=== PATIENT | female | born 1980 | race Caucasian/White ===

== ENCOUNTER 2019-11-22 17:20 | Emergency (ER) | payer MEDICAID ==
[~2019-11-22] VITALS: Ht 162.6 cm; Wt 74.4 kg
--- NOTE | 2019-11-22 17:26 | NUR ---
CALLED OUT PATIENT NAME IN LOBBY, NO RESPONSE
--- NOTE | 2019-11-22 17:34 | NUR ---
CALLED OUT PATIENT NAME IN LOBBY, NO RESPONSE
--- NOTE | 2019-11-22 17:43 | NUR ---
CALLED OUT PATIENT NAME IN LOBBY, NO RESPONSE
[2019-11-22 17:53] VITALS: BP 127/78
--- NOTE | 2019-11-22 18:10 | NUR ---
BIB self from home with c/o pain with urination and suspected STI. A, A, Ox4, cooperative, in NAD Resp even and unlabored, VVS Moving all exts w/o difficulty Awaiting evaluation by PA Will continue to monitor
--- NOTE | 2019-11-22 18:15 | NUR ---
Urine sample obtained, dipped, and POC HCG negative Sent to the lab
[2019-11-22] MEDS ORDERED: KETOROLAC 30 MG/ML VIAL IM ONE (18:35)
--- NOTE | 2019-11-22 18:40 | NUR ---
Toradol given IM LD
--- NOTE | 2019-11-22 18:55 | NUR ---
Patient given discharge instructions and scripts explained, verbalized understanding. Patient advised to see PCP for follow up and to return/seek care if symptoms worsen or return. Gait steady, ID band removed, patient d/c'd with all belongings
[2019-11-22 20:41] LABS: BILIRUBIN,URINE NEGATIVE (NEGATIVE); BLOOD, URINE TRACE-I (NEGATIVE); COLOR,URINE YELLOW (YELLOW); LEUKOCYTE ESTERASE ,URINE TRACE (NEGATIVE); NITRITE, URINE POSITIVE (NEGATIVE); UGLUCOSE NEGATIVE (NEGATIVE)
[2019-11-22 21:08] LABS: APPEARANCE,URINE HAZY (CLEAR)
[2019-11-22 21:35] LABS: RBC,URINE 0-5 /HPF (0-5)
--- NOTE | 2019-11-25 15:50 | NUR ---
DISCREPANCY CALL BACK LOG PAPER REVIEWED BY DR. CASSIDY - PLACED IN DISCREPENCY LOG
[2019-11-25 16:06] LABS: CHLAMYDIA TRACHOMATIS AMP DNA Negative (Negative)
== END 2019-11-22 18:55 | disposition home or self-care (01) ==
LOC: MED 17:20
DX: N39.0 Urinary tract infection, site not specified (principal)
CPT/HCPCS: 36415; 81001; 81025; 87086; 96372; 99283; J1885; 81002; 87491

== ENCOUNTER 2020-02-17 13:30 | Emergency (ER) | payer MEDICAID ==
[~2020-02-17] VITALS: Ht 162.6 cm; Wt 70.8 kg
[2020-02-17 13:58] VITALS: BP 110/81
[2020-02-17 14:05] VITALS: BP 107/78
--- NOTE | 2020-02-17 14:05 | NUR ---
PT C/O LOWER ABDOMINAL PAIN ACCOMPANIED BY NAUSEA, VOMITING, SOB SINCE YESTERDAY. LBP WAS YESTERDAY. DENIES FEVER, CHILLS, DIARRHEA, CHEST PAIN, OR SICK CONTACT. PT ALSO REPORTS BURNING SENSATION OF URINATION. PMH: DENIES
[2020-02-17] MEDS: KETOROLAC 60 MG/2 ML VIAL IM ONE ×2 (15:10→15:19)
--- NOTE | 2020-02-17 15:27 | NUR ---
Patient does not wish to proceed with medical care recommended by Sriram LYNNE. Patient given information related to possible complications, up to and including , which could occur as a result of leaving hospital at this time. Patient verbalizes understanding of risks involved leaving against medical advice. Patient has signed AMA form.
--- NOTE | 2020-02-17 15:28 | NUR ---
PATIENT ELOPED FROM FACILITY. DISCHARGE INSTRUCTIONS NOT GIVEN TO PATIENT. MAGED KELLEY NOTIFIED.
== END 2020-02-17 15:28 | disposition left against medical advice (07) ==
LOC: MED 13:30
DX: R10.30 Lower abdominal pain, unspecified (principal); R30.0 Dysuria
CPT/HCPCS: 81002; 81025; 87086; 96372; 99283; J1885

== ENCOUNTER 2020-04-21 00:15 | Emergency (ER) | payer MEDICAID ==
[~2020-04-21] VITALS: Ht 165.1 cm; Wt 71.2 kg
[2020-04-21 00:19] VITALS: BP 111/67
--- NOTE | 2020-04-21 00:20 | NUR ---
PATIENT AMBUALTED TO BED 3 WITH STEADY GAIT.
[2020-04-21 00:45] VITALS: BP 134/70
--- NOTE | 2020-04-21 01:02 | NUR ---
PATIENT BIB SELF FOR C/O URINARY BURNING X 1 DAY. PATIENT 7/10 LOWER PELVIC AND L FLANK PAIN. 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 MEDHX- NONE NKA
--- NOTE | 2020-04-21 01:31 | NUR ---
DR ARTEAGA AT BEDSIDE EXAMINING PATIENT
[2020-04-21] MEDS ORDERED: cefTRIAXone 1,000 MG in LIDOCAINE MPF 1% 2.1 ML IM ONE (01:35)
[2020-04-21] MEDS ORDERED: ACETAMINOPHEN EXTRA STRENGTH 500 MG TAB PO ONE (01:35)
[2020-04-21] MEDS ORDERED: IBUPROFEN 800 MG TAB PO ONE (01:40)
[2020-04-21] MEDS ORDERED: CEPH500C16 PO (01:41)
[2020-04-21] MEDS ORDERED: PYR100 PO (01:41)
[2020-04-21] MEDS ORDERED: LIDOCAINE MPF 1% 5 ML ONE (01:49)
[2020-04-21] MEDS ORDERED: cefTRIAXone 1,000 MG VIAL ONE (01:49)
--- NOTE | 2020-04-21 02:00 | NUR ---
ERMD VERBAL ORDER TO CANCEL MEDICATION. Addendum: 04/21/20 at 0221 by [email or web address] CANCLE IBUPROPHEN MEDICATION ORDER PER ERMD ORDER.
[2020-04-21 02:20] VITALS: BP 132/88
--- NOTE | 2020-04-21 02:20 | NUR ---
Patient discharged with v/s stable. Written and verbal after care instructions given and explained. Patient alert, oriented and verbalized understanding of instructions. Ambulatory with steady gait. All questions addressed prior to discharge. ID band removed. Patient advised to follow up with PMD. Rx of KEFLEX, PYRIDIUM given. Patient educated on indication of medication including possible reaction and side effects. Opportunity to ask questions provided and answered.
== END 2020-04-21 02:20 | disposition home or self-care (01) ==
LOC: EDBD 00:15 → MED 00:15
DX: N39.0 Urinary tract infection, site not specified (principal); Z79.899 Other long term (current) drug therapy
CPT/HCPCS: 81002; 81025; 96372; 99283; J0696; J2001

== ENCOUNTER 2021-03-19 10:57 | Emergency (ER) | payer MEDICAID ==
[~2021-03-19] VITALS: Ht 162.6 cm; Wt 69.6 kg
[~2021-03-19 10:57] MED LIST: CEPH500C16 PO; PYR100 PO
[2021-03-19 11:06] VITALS: BP 152/111
--- NOTE | 2021-03-19 11:10 | NUR ---
Patient being evaluated by DR YOUNG at TRIAGE ROOM.
--- NOTE | 2021-03-19 11:20 | NUR ---
BIB SELF C/O NAUSEA, VAGINAL BLEEDING: SPOTTING , 7/10 LOWER ABD PAIN, MID BACK PAIN , WEAKNESS, DIZZINESS X 2 WEEKS. PMH: ASTHMA, C SECTIONS
[2021-03-19 11:26] VITALS: BP 152/111
--- NOTE | 2021-03-19 11:26 | NUR ---
PT STATES SHE WOULD LIKE TO WAIT IN LOBBY.
[2021-03-19 11:43] LABS: BASOPHILS % (AUTO) 0.6 % (0.0-2.0); EOSINOPHILS # (AUTO) 0.1 K/uL (0-0.4); HEMOGLOBIN 12.4 g/dL (12.0-16.0); LYMPHOCYTES # (AUTO) 1.3 K/uL (2.5-16.5); LYMPHOCYTES % (AUTO) 25.9 % (20.5-51.1); MEAN CORPUSCULAR HEMOGLOBIN 28 pg (27-31); MEAN CORPUSCULAR HGB CONC 33 g/dL (33-37); MEAN CORPUSCULAR VOLUME 84.9 fL (80-94); MONOCYTES # (AUTO) 0.4 K/uL (0.8-1.0); NEUTROPHILS # (AUTO) 3.2 K/uL (1.8-7.7); NEUTROPHILS % (AUTO) 63.5 % (42.2-75.2); PLATELET COUNT (AUTO) 427 K/uL (140-450); RED BLOOD CELL COUNT(AUTO) 4.48 MIL/uL (4.20-5.40); RED CELL DISTRIBUTION WIDTH 15.5 % (11.6-13.7)
[2021-03-19] MEDS ORDERED: MEDR10TA PO (12:22)
--- NOTE | 2021-03-19 12:50 | NUR ---
CALLED PT IN ER [facility] N/A ER/MD DR YOUNG NOTIFTED HE WILL CALL PT AT HOME
--- NOTE | 2021-03-19 12:51 | NUR ---
PT LEFT W/O DISCHARE INFO ER MD CALL PT.
--- NOTE | 2021-03-19 12:51 | NUR ---
Patient discharged with v/s stable. Written and verbal after care instructions given and explained. Patient alert, oriented and verbalized understanding of instructions. Ambulatory with steady gait. All questions addressed prior to discharge. ID band removed. Patient advised to follow up with PMD. Rx of PROVERA given. Patient educated on indication of medication including possible reaction and side effects. Opportunity to ask questions provided and answered.
== END 2021-03-19 12:51 | disposition home or self-care (01) ==
LOC: MED 10:57
DX: N93.9 Abnormal uterine and vaginal bleeding, unspecified (principal); J45.909 Unspecified asthma, uncomplicated
CPT/HCPCS: 36415; 81002; 81025; 84443; 85025; 99283